=== PATIENT | female | born 1980 | race Caucasian/White ===

== ENCOUNTER 2016-09-25 15:42 | Emergency (ER) | payer OTHER ==
[~2016-09-25] VITALS: Ht 154.9 cm; Wt 70.1 kg
[~2016-09-25 15:42] MED LIST: ENDOCET 5-3251 EACH PO; IBUPROFEN800 MG PO; LISINOPRIL10 MG PO; LO-DOSE ASPIRIN81 M2 PO; MONONESSA1 EACH PO; Motrin PO; PROPRANOLOL HCL40 MG PO; WELLBUTRIN SR100 MG PO
[2016-09-25 16:59] LABS: MCH 29.4 PG (29.0-34.0); MCHC 33.9 G/DL (30.0-36.0); MCV 86.8 FL (83-99); MEAN PLAT.VOLUME 9.5 uM^3 (9.5-12.4); PLATELET COUNT 290 K/uL (156-360); RBC DIS.WIDTH-CV 12.9 % (11.8-14.6); RBC DIS.WIDTH-SD 40.4 % (39-53); WHITE BLOOD COUNT 7.8 K/uL (4.1-10.2)
[2016-09-25 17:12] LABS: CHLORIDE 104 mEq/L (99-109); POTASSIUM 4.4 mEq/L (3.7-5.4); SODIUM 139 mEq/L (136-147)
[2016-09-25 17:14] LABS: GLUCOSE 91 mg/dL (70-99)
[2016-09-25 17:15] LABS: ANION GAP 11 MEQ/L (2-14)
[2016-09-25 17:16] LABS: TOTAL BILIRUBIN 0.4 mg/dL (0.0-1.0)
[2016-09-25 17:17] LABS: ALKALINE PHOSPHATASE 40 IU/L (3-129)
[2016-09-25 17:18] LABS: GFR ESTIMATE (CALCULATED) > 59 mL/min/
[2016-09-25 17:19] LABS: TROP-I INTERPRETATION NEGATIVE; TROPONIN-I < 0.01 ng/mL (0.0-0.30); UREA NITROGEN (BUN) 11 mg/dL (9-23)
[2016-09-25 21:13] LABS: TROP-I INTERPRETATION NEGATIVE; TROPONIN-I < 0.01 ng/mL (0.0-0.30)
[2016-09-25 22:35] LABS: D-DIMER ELISA 0.19 mg/L FEU (< 0.57)
[2016-09-26] VITALS: BP 101/71
== END 2016-09-26 00:05 | disposition home or self-care (01) ==
LOC: EME 15:42
DX: R07.89 Other chest pain (principal); R51 Headache; R53.83 Other fatigue; I45.10 Unspecified right bundle-branch block; R42 Dizziness and giddiness; I10 Essential (primary) hypertension; Z79.82 Long term (current) use of aspirin; Z87.891 Personal history of nicotine dependence
CPT/HCPCS: 71020; 80053; 84484; 85027; 85379; 93005; 99281; 99285; J1200; J1885; J2765; J7030